=== PATIENT | male | born 1955 | race Caucasian/White ===

== ENCOUNTER 2016-10-20 03:04 | Observation (INO) | payer BC | END 2016-10-20 04:49 | disposition short-term general hospital (02) | LOC: CCU 03:11 → ZRECOF 03:56 | PROVIDERS: ADMIT Internal Medicine | DX: I21.19 ST elevation (STEMI) myocardial infarction involving other coronary artery of inferior wall (principal); I25.10 Atherosclerotic heart disease of native coronary artery without angina pectoris; F10.129 Alcohol abuse with intoxication, unspecified; I48.91 Unspecified atrial fibrillation | CPT/HCPCS: 85347; 92920; C1725; C1769; C1887; G0378; G0379; J0461; J0583; J1644; J2370; J7040; Q9965 ==

== ENCOUNTER → 2020-12-08 | Outpatient (CLI) | payer OTHER | LOC: KOH-I 13:38 | DX: I73.9 Peripheral vascular disease, unspecified (principal) | CPT/HCPCS: 93925 ==

== ENCOUNTER → 2021-10-17 | Outpatient (CLI) | payer OTHER | LOC: ECHO 11:15 → NM 13:00 | DX: R94.31 Abnormal electrocardiogram [ECG] [EKG] (principal); I25.10 Atherosclerotic heart disease of native coronary artery without angina pectoris; R07.9 Chest pain, unspecified; I35.0 Nonrheumatic aortic (valve) stenosis | CPT/HCPCS: ECHO; 78452; 93017; 93306; A9502; J2785 ==

== ENCOUNTER → 2021-10-31 | Day surgery (SDC) | payer OTHER ==
[~2021-10-31] MED LIST: ATORVASTATIN CA80 MG PO; ELIQUIS5 MG PO; GABAPENTIN800 MG PO; GLUCOPHAGE 500500 MG PO; GLUCOTROL5 MG PO; JARDIANCE25 MG PO; LEVEMIR FL100 UNIT/1 SQ; LEVOCETIRIZINE D5 MG PO; LOPRESSOR 25 MG25 MG PO; OMEGA-3 ACID ETH1 GM PO; PROTONIX 40 MG40 M1 PO
== END ==
LOC: CATH 07:35
DX: I08.3 Combined rheumatic disorders of mitral, aortic and tricuspid valves (principal); I25.10 Atherosclerotic heart disease of native coronary artery without angina pectoris; I12.9 Hypertensive chronic kidney disease with stage 1 through stage 4 chronic kidney disease, or unspecified chronic kidney disease; E11.22 Type 2 diabetes mellitus with diabetic chronic kidney disease; N18.9 Chronic kidney disease, unspecified; I48.91 Unspecified atrial fibrillation; E78.5 Hyperlipidemia, unspecified; J44.9 Chronic obstructive pulmonary disease, unspecified; N52.9 Male erectile dysfunction, unspecified; Z88.6 Allergy status to analgesic agent; Z88.8 Allergy status to other drugs, medicaments and biological substances; Z79.82 Long term (current) use of aspirin; Z79.01 Long term (current) use of anticoagulants; Z79.84 Long term (current) use of oral hypoglycemic drugs; Z79.899 Other long term (current) drug therapy; Z82.49 Family history of ischemic heart disease and other diseases of the circulatory system
CPT/HCPCS: 82962; 93005; 93312; 93320; J2250; J2310; J3010; J7040